=== PATIENT | female | born 1945 | race Caucasian/White ===

== ENCOUNTER 2018-04-08 12:20 | Inpatient (IN) ==
[2018-04-08] MEDS ORDERED: Diphtheria/Tetanus/Pertussis Vaccine Inj 0.5 ML Syringe IM ONE (12:30)
[2018-04-08] MEDS ORDERED: fentaNYL Citrate Inj 100 MCG/2 ML Ampul ONE (12:34)
[2018-04-08 12:42] LABS: Baso # (Auto) 0.1 th/mm3 (0.0-0.2); Baso % (Auto) 0.4 % (0.0-2.0); Eos # (Auto) 0.1 th/mm3 (0.0-0.4); Eos % (Auto) 0.9 % (0.0-4.0); Hematocrit 39.4 % (35.0-46.0); Hemoglobin 13.2 gm/dL (11.6-15.3); Lymph # (Auto) 5.5 th/mm3 (1.0-4.8); Lymph % (Auto) 36.7 % (9.0-44.0); Mean Corpuscular HGB Conc 33.6 % (32.0-36.0); Mean Corpuscular Hemoglobin 31.5 pg (27.0-34.0); Mean Corpuscular Volume 93.9 fL (80.0-100.0); Mean Platelet Volume 8.6 fL (7.0-11.0); Mono # (Auto) 0.9 th/mm3 (0.0-0.9); Mono % (Auto) 6.1 % (0.0-8.0); Neut # (Auto) 8.3 th/mm3 (1.8-7.7); Neut % (Auto) 55.9 % (16.0-70.0); Platelet Count 344 th/mm3 (150-450); Red Cell Distribution Width 13.7 % (11.6-17.2); White Blood Count 14.9 th/mm3 (4.0-11.0)
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
[2018-04-08 12:51] LABS: Activated Partial Thrombo Time 22.6 sec (24.3-30.1)
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
[2018-04-08 13:15] LABS: Eosinophils 1 % (0-4); Monocytes 3 % (0-8)
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
[2018-04-08 13:16] LABS: Lymphocytes 28 % (9-44); Platelet Estimate Normal (Normal); Platelet Morphology Normal (Normal); RBC Morphology Normal (Normal)
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
[2018-04-08] MEDS ORDERED: Lidocaine PF 1% Inj 30 ML Vial INFILTRATN ONE (13:39)
[2018-04-08] MEDS ORDERED: Naloxone Inj 0.4 MG/ML Vial IV.PUSH PRN (13:52)
[2018-04-08] MEDS ORDERED: Bisacodyl 10 MG Supp RECTAL PRN (13:52)
[2018-04-08] MEDS ORDERED: Post-op Orders (for Pharmacy) OTHER ONE (13:52)
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
[2018-04-08] MEDS ORDERED: levETIRAcetam 500mg/100mL Inj 100 ML IV.SIG SCH (14:00)
[2018-04-08] MEDS: ceFAZolin Inj 1,000 MG in Sodium Chlor 0.9% Inj 100 ML IV.SIG SCH ×2 (15:18→21:35)
[2018-04-08] MEDS: Morphine Inj 4 MG/ML Vial IV.PUSH PRN ×2 (15:41→21:30)
[2018-04-08] MEDS: Sod Chloride 0.9% Inj 1,000 ML IV.CONT SCH (15:42)
[2018-04-08] MEDS: Pantoprazole Inj 40 MG Vial IV.PUSH SCH (15:43)
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
[2018-04-08] MEDS ORDERED: Acetaminophen 325 MG Tablet PO PRN (17:22)
[2018-04-08] MEDS: Senna/Docusate Sodium 8.6/50 MG Tablet PO SCH (21:29)
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
[2018-04-09] MEDS: Sod Chloride 0.9% Inj 1,000 ML IV.CONT SCH ×3 (01:36→21:50)
[2018-04-09 05:28] LABS: Baso % (Auto) 0.1 % (0.0-2.0); Hemoglobin 8.9 gm/dL (11.6-15.3); Lymph # (Auto) 1.7 th/mm3 (1.0-4.8); Lymph % (Auto) 8.3 % (9.0-44.0); Mean Corpuscular HGB Conc 32.8 % (32.0-36.0); Mean Corpuscular Hemoglobin 31.4 pg (27.0-34.0); Mean Corpuscular Volume 95.7 fL (80.0-100.0); Mean Platelet Volume 9.2 fL (7.0-11.0); Mono # (Auto) 1.4 th/mm3 (0.0-0.9); Mono % (Auto) 6.9 % (0.0-8.0); Neut # (Auto) 17.2 th/mm3 (1.8-7.7); Neut % (Auto) 84.7 % (16.0-70.0); Platelet Count 282 th/mm3 (150-450); Red Blood Count 2.83 mil/mm3 (4.00-5.30); Red Cell Distribution Width 13.7 % (11.6-17.2); White Blood Count 20.3 th/mm3 (4.0-11.0)
[2018-04-09 05:41] LABS: Calcium 7.6 mg/dL (8.5-10.1); Carbon Dioxide 21.4 meq/L (21.0-32.0); Potassium 3.8 meq/L (3.5-5.1)
[2018-04-09] MEDS: ceFAZolin Inj 1,000 MG in Sodium Chlor 0.9% Inj 100 ML IV.SIG SCH (05:51)
[2018-04-09] MEDS: Senna/Docusate Sodium 8.6/50 MG Tablet PO SCH ×3 (10:25→22:16)
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
[2018-04-09 15:47] LABS: Baso % (Auto) 0.1 % (0.0-2.0); Hematocrit 23.8 % (35.0-46.0); Hemoglobin 7.7 gm/dL (11.6-15.3); Lymph # (Auto) 2.1 th/mm3 (1.0-4.8); Lymph % (Auto) 10.7 % (9.0-44.0); Mean Corpuscular HGB Conc 32.3 % (32.0-36.0); Mean Platelet Volume 9.7 fL (7.0-11.0); Mono # (Auto) 2.2 th/mm3 (0.0-0.9); Mono % (Auto) 11.2 % (0.0-8.0); Neut # (Auto) 15.5 th/mm3 (1.8-7.7); Platelet Count 255 th/mm3 (150-450); Red Blood Count 2.48 mil/mm3 (4.00-5.30); Red Cell Distribution Width 14.1 % (11.6-17.2); White Blood Count 19.9 th/mm3 (4.0-11.0)
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
[2018-04-09 16:40] LABS: Platelet Estimate Normal (Normal); Platelet Morphology Normal (Normal); RBC Morphology Normal (Normal)
[2018-04-09] MEDS: Pantoprazole Inj 40 MG Vial IV.PUSH SCH (17:49)
[2018-04-09] MEDS: levETIRAcetam 500 MG Tablet PO SCH ×2 (19:44→22:17)
[2018-04-09 21:58] LABS: Baso % (Auto) 0.2 % (0.0-2.0); Lymph # (Auto) 3.4 th/mm3 (1.0-4.8); Mean Corpuscular HGB Conc 32.5 % (32.0-36.0); Mean Corpuscular Hemoglobin 31.5 pg (27.0-34.0); Mean Corpuscular Volume 96.9 fL (80.0-100.0); Mean Platelet Volume 8.7 fL (7.0-11.0); Mono # (Auto) 2.3 th/mm3 (0.0-0.9); Mono % (Auto) 12.5 % (0.0-8.0); Neut % (Auto) 69.3 % (16.0-70.0); Platelet Count 219 th/mm3 (150-450); Red Blood Count 1.93 mil/mm3 (4.00-5.30); Red Cell Distribution Width 14.1 % (11.6-17.2); White Blood Count 18.7 th/mm3 (4.0-11.0)
--- NOTE | 2018-04-09 22:02 | CT ---
EXAM DATE: 04/09/2018 9:10 PM EDT AGE/SEX: 89 years / Female INDICATIONS: Follow up bilateral subarachnoid hemorrhage. CLINICAL DATA: This is the patient's subsequent encounter. Patient reports that signs and symptoms h ave been present for 1 day and indicates a pain score of Nonresponsive. MEDICAL/SURGICAL HISTORY: Non-responsive. Non-responsive. RADIATION DOSE: 56.35 CTDI (mGy) COMPARISON: [facility] – [place], CT HEAD W/O CONTRAST, 04/08/2018. . TECHNIQUE: CT of the head without contrast. Using automated exposure control and adjustment of the mA and/or kV according to patient size, radiation dose was kept as low as reasonably achievable to ob tain optimal diagnostic quality images. DICOM format image data is available electronically for revi ew and comparison. FINDINGS: Cerebrum: Interval increase in the size of the left frontal hematoma, now measuring 3.6 x 1.9 cm (pr eviously measured 1.5 x 0.7 cm). There is no effacement of the left frontal horn. Interval interval i ncrease in the size of the right inferior parietal hematoma, now measuring 3.7 x 2.1 cm (previously w as ill-defined and measured up to 9 mm in size). Stable size to the mid convexity right peripheral pa rietal hematoma measuring 6 mm. The ventricles are normal in size. There is preserved mcqueen-white alex er differentiation. Posterior Fossa: The cerebellum and brainstem are intact. The 4th ventricle is midline. The cerebe llopontine angle is unremarkable. Extracranial: Stable left exophthalmus. Skull: Stable left supraorbital fracture and right sphenoid fracture. Persistent opacification of th e ethmoid and sphenoid sinuses. CONCLUSION: 1. Significant change in the appearance of the brain with increasing size left frontal and right pos terior parietal hematomas, each now measuring up to 3.7 cm in size. No effacement of the ventricles o r loss of mcqueen-white matter differentiation. . Electronically signed by: Alex Epps MD 04/09/2018 10:01 PM EDT
[2018-04-09 22:08] LABS: Hematocrit 18.7 % (35.0-46.0); Hemoglobin 6.1 gm/dL (11.6-15.3)
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
[2018-04-09 23:32] LABS: Lymphocytes 15 % (9-44); Metamyelocytes 5 % (0-1); Monocytes 4 % (0-8); Myelocytes 1 % (0-0)
[2018-04-09 23:33] LABS: Platelet Estimate Normal (Normal); Platelet Morphology Normal (Normal); Toxic Granulation 3+
[2018-04-10] MEDS: Senna/Docusate Sodium 8.6/50 MG Tablet PO SCH ×2 (10:06→20:12)
[2018-04-10] MEDS: levETIRAcetam 500 MG Tablet PO SCH ×2 (10:06→20:09)
[2018-04-10 10:17] LABS: Baso % (Auto) 0.1 % (0.0-2.0); Eos % (Auto) 0.1 % (0.0-4.0); Hematocrit 26.6 % (35.0-46.0); Hemoglobin 9.1 gm/dL (11.6-15.3); Lymph # (Auto) 2.3 th/mm3 (1.0-4.8); Lymph % (Auto) 16.1 % (9.0-44.0); Mean Corpuscular HGB Conc 34.3 % (32.0-36.0); Mean Corpuscular Hemoglobin 32.3 pg (27.0-34.0); Mean Corpuscular Volume 94.3 fL (80.0-100.0); Mean Platelet Volume 9.1 fL (7.0-11.0); Mono # (Auto) 1.2 th/mm3 (0.0-0.9); Mono % (Auto) 8.5 % (0.0-8.0); Neut # (Auto) 10.6 th/mm3 (1.8-7.7); Neut % (Auto) 75.2 % (16.0-70.0); Platelet Count 172 th/mm3 (150-450); Red Blood Count 2.82 mil/mm3 (4.00-5.30); Red Cell Distribution Width 14.6 % (11.6-17.2); White Blood Count 14.1 th/mm3 (4.0-11.0)
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
[2018-04-10 10:50] LABS: Calcium 7.1 mg/dL (8.5-10.1); Carbon Dioxide 26.6 meq/L (21.0-32.0); Potassium 3.2 meq/L (3.5-5.1)
[2018-04-10 11:02] LABS: Total Protein 5.2 g/dL (6.4-8.2)
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
[2018-04-10] MEDS: Pantoprazole Inj 40 MG Vial IV.PUSH SCH (13:00)
[2018-04-10 14:02] LABS: Hematocrit 24.5 % (35.0-46.0); Hemoglobin 8.5 gm/dL (11.6-15.3)
[2018-04-10] MEDS: Sod Chloride 0.9% Inj 1,000 ML IV.CONT SCH ×2 (17:18)
[2018-04-11 04:40] LABS: Baso % (Auto) 0.2 % (0.0-2.0); Eos % (Auto) 0.4 % (0.0-4.0); Hematocrit 25.3 % (35.0-46.0); Hemoglobin 8.7 gm/dL (11.6-15.3); Lymph # (Auto) 2.4 th/mm3 (1.0-4.8); Lymph % (Auto) 18.8 % (9.0-44.0); Mean Corpuscular HGB Conc 34.3 % (32.0-36.0); Mean Corpuscular Volume 93.4 fL (80.0-100.0); Mean Platelet Volume 8.6 fL (7.0-11.0); Mono # (Auto) 0.9 th/mm3 (0.0-0.9); Mono % (Auto) 7.2 % (0.0-8.0); Neut # (Auto) 9.3 th/mm3 (1.8-7.7); Neut % (Auto) 73.4 % (16.0-70.0); Platelet Count 165 th/mm3 (150-450); Red Blood Count 2.71 mil/mm3 (4.00-5.30); Red Cell Distribution Width 14.6 % (11.6-17.2); White Blood Count 12.6 th/mm3 (4.0-11.0)
[2018-04-11 05:01] LABS: Calcium 7.2 mg/dL (8.5-10.1); Carbon Dioxide 24.6 meq/L (21.0-32.0)
[2018-04-11 05:21] LABS: Total Protein 5.3 g/dL (6.4-8.2)
[2018-04-11 05:51] LABS: Platelet Morphology Normal (Normal)
[2018-04-11] MEDS: Sod Chloride 0.9% Inj 1,000 ML IV.CONT SCH ×2 (05:53→18:04)
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
[2018-04-11] MEDS: levETIRAcetam 500 MG Tablet PO SCH ×2 (08:25→21:12)
[2018-04-11] MEDS: Senna/Docusate Sodium 8.6/50 MG Tablet PO SCH ×2 (08:25→21:12)
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
[2018-04-11] MEDS: Pantoprazole Inj 40 MG Vial IV.PUSH SCH (13:38)
[2018-04-11] MEDS: Brimonidine 0.2% Opth Drops 5 ML Bottle LEFT EYE SCH (18:05)
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
[2018-04-11] MEDS: Latanoprost 0.005% Opth Drops 2.5 ML Bottle LEFT EYE SCH (21:12)
[2018-04-11] MEDS: Dorzolamide-Timolol 2/0.5% Opth Drops 10 ML Bottle LEFT EYE SCH (21:12)
[2018-04-12 04:44] LABS: Baso % (Auto) 0.3 % (0.0-2.0); Eos # (Auto) 0.1 th/mm3 (0.0-0.4); Eos % (Auto) 0.8 % (0.0-4.0); Hematocrit 25.9 % (35.0-46.0); Hemoglobin 8.8 gm/dL (11.6-15.3); Lymph # (Auto) 2.2 th/mm3 (1.0-4.8); Lymph % (Auto) 17.7 % (9.0-44.0); Mean Corpuscular Hemoglobin 32.5 pg (27.0-34.0); Mean Corpuscular Volume 95.5 fL (80.0-100.0); Mean Platelet Volume 8.3 fL (7.0-11.0); Mono # (Auto) 0.9 th/mm3 (0.0-0.9); Neut # (Auto) 9.2 th/mm3 (1.8-7.7); Neut % (Auto) 74.2 % (16.0-70.0); Platelet Count 186 th/mm3 (150-450); Red Blood Count 2.71 mil/mm3 (4.00-5.30); Red Cell Distribution Width 14.6 % (11.6-17.2); White Blood Count 12.4 th/mm3 (4.0-11.0)
[2018-04-12 06:57] LABS: Tallied Nucleated RBC 2 (0-0)
[2018-04-12 06:58] LABS: Blast Cells 1 % (0-0); Lymphocytes 12 % (9-44); Metamyelocytes 1 % (0-1); Monocytes 1 % (0-8)
[2018-04-12 06:59] LABS: Myelocytes 1 % (0-0)
[2018-04-12 07:01] LABS: Platelet Estimate Normal (Normal); Platelet Morphology Normal (Normal)
[2018-04-12] MEDS: Sod Chloride 0.9% Inj 1,000 ML IV.CONT SCH ×2 (07:46→22:12)
[2018-04-12] MEDS: Senna/Docusate Sodium 8.6/50 MG Tablet PO SCH ×3 (08:54→22:09)
[2018-04-12] MEDS: levETIRAcetam 500 MG Tablet PO SCH ×2 (08:54→22:09)
[2018-04-12] MEDS: Dorzolamide-Timolol 2/0.5% Opth Drops 10 ML Bottle LEFT EYE SCH ×2 (09:01→22:11)
[2018-04-12] MEDS: Brimonidine 0.2% Opth Drops 5 ML Bottle LEFT EYE SCH ×3 (10:18→18:26)
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
[2018-04-12] MEDS: Pantoprazole Inj 40 MG Vial IV.PUSH SCH (13:32)
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
[2018-04-12] MEDS: Acetaminophen 325 MG Tablet PO PRN (22:08)
[2018-04-12] MEDS: Latanoprost 0.005% Opth Drops 2.5 ML Bottle LEFT EYE SCH (22:12)
[2018-04-13 04:55] LABS: Baso % (Auto) 0.4 % (0.0-2.0); Eos # (Auto) 0.2 th/mm3 (0.0-0.4); Eos % (Auto) 1.7 % (0.0-4.0); Hematocrit 27.5 % (35.0-46.0); Hemoglobin 9.5 gm/dL (11.6-15.3); Lymph # (Auto) 2.2 th/mm3 (1.0-4.8); Lymph % (Auto) 19.1 % (9.0-44.0); Mean Corpuscular HGB Conc 34.5 % (32.0-36.0); Mean Corpuscular Hemoglobin 32.6 pg (27.0-34.0); Mean Corpuscular Volume 94.5 fL (80.0-100.0); Mean Platelet Volume 8.1 fL (7.0-11.0); Mono # (Auto) 0.9 th/mm3 (0.0-0.9); Mono % (Auto) 7.5 % (0.0-8.0); Neut # (Auto) 8.4 th/mm3 (1.8-7.7); Neut % (Auto) 71.3 % (16.0-70.0); Platelet Count 271 th/mm3 (150-450); Red Blood Count 2.91 mil/mm3 (4.00-5.30); Red Cell Distribution Width 14.5 % (11.6-17.2); White Blood Count 11.7 th/mm3 (4.0-11.0)
[2018-04-13 05:20] LABS: Anion Gap 11 meq/L (5-15); Blood Urea Nitrogen 10 mg/dL (7-18); Calcium 7.4 mg/dL (8.5-10.1); Carbon Dioxide 23.3 meq/L (21.0-32.0); Chloride 110 meq/L (98-107); Glomerular Filtration Rate Greater Than 89 mL/min (>89); Glucose,Random 84 mg/dL (74-106); Potassium 3.4 meq/L (3.5-5.1); Sodium 144 meq/L (136-145)
[2018-04-13 05:34] LABS: Total Protein 5.6 g/dL (6.4-8.2)
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
[2018-04-13] MEDS: Senna/Docusate Sodium 8.6/50 MG Tablet PO SCH ×2 (09:48→21:49)
[2018-04-13] MEDS: levETIRAcetam 500 MG Tablet PO SCH ×2 (09:48→21:49)
[2018-04-13] MEDS: Pantoprazole Inj 40 MG Vial IV.PUSH SCH (14:35)
[2018-04-13] MEDS: Brimonidine 0.2% Opth Drops 5 ML Bottle LEFT EYE SCH ×3 (14:36→18:00)
[2018-04-13] MEDS: Dorzolamide-Timolol 2/0.5% Opth Drops 10 ML Bottle LEFT EYE SCH ×2 (14:36→21:49)
--- NOTE | 2018-04-13 15:50 | P.PN ---
Subjective Interval history: CT head showed no new findings - still with persistent orbital hematoma on the left measuring up to 1.3 cm in thickness and resulting in left-sided proptosis and inferior displacement of the left optic globe. Pt still cannot open left eye and states it is very tender to touch. Physical Exam Vital signs: Vital Signs 04/12/18 16:00 04/12/18 20:55 04/12/18 22:05 Temperature 99.0 F Pulse Rate 83 86 Respiratory Rate 21 17 18 Blood Pressure 144/65 H Pulse Oximetry 96 92 L 04/12/18 22:30 04/12/18 23:54 04/13/18 00:00 Temperature 97.7 F Pulse Rate 83 81 Respiratory Rate 20 16 18 Blood Pressure 147/66 H Pulse Oximetry 96 96 04/13/18 00:44 04/13/18 04:00 04/13/18 05:15 Temperature 98 F Pulse Rate 77 Respiratory Rate 18 18 19 Blood Pressure 135/62 Pulse Oximetry 94 L 04/13/18 08:00 04/13/18 08:50 04/13/18 12:12 Temperature 98.7 F Pulse Rate 78 72 70 Respiratory Rate 20 18 16 Blood Pressure 143/67 H Pulse Oximetry 93 L 95 Intake & Output 04/12/18 04/13/18 04/13/18 18:59 06:59 18:59 Intake Total 100 / 100 1804 / 1804 Output Total 700 / 700 Balance -600 / -600 1804 / 1804 Weight 60 kg Intake: IV 100 / 100 683 / 683 NS Inj 1,000 ML @ 75 mls/hr IV. 683 / 683 CONT .[id number] [facility] Rx#:[id number] Ofirmev Inj 1,000 mg In 100 ml 100 / 100 @ 400 mls/hr IV.SIG Q6H PRN Rx# :[id number] Oral 221 / 221 Other 900 / 900 Output: Urine Amount (Catheter) 700 / 700 Indwelling Urethral Catheter 700 / 700 Other: Other Intake Source Saline Solution # Voids 2 Date of Last Bowel Movement 04/11/18 # Bowel Movements 1 - Detailed Eye Exam Comments: Va sc at near OD 20/200, OS 20/200 EOM full OD, almost complete ophthalmoplegia OS CVF unable Pupils 2-1, +APD OS IOP 15, 24 Anterior exam OD - eyelid ecchymoses, C/S W&Q, K clear, AC deep, pupil round, PCIOL OS - eyelid ecchymoses, proptosis, complete ptosis, chemosis, K clear, AC deep, pupil round, PCIOL - Urinary Catheter Management Indwelling Urethral Catheter Cath placed during this visit: yes, but has since been removed by the nurse Reason for continuing: Acute urinary retention Insertion date: 04/08/18 Insertion time: 17:00 Removal date: 04/12/18 Results - Labs CBC & Chem 7: 04/13/18 04:03 04/13/18 04:03 Laboratory Results - last 24 hr 04/13/18 04/13/18 04:03 04:03 WBC 11.7 H RBC 2.91 L Hgb 9.5 L Hct 27.5 L MCV 94.5 MCH 32.6 MCHC 34.5 RDW 14.5 Plt Count 271 D MPV 8.1 Prelim Diff (Auto) Slide review pending Neut % (Auto) 71.3 H Lymph % (Auto) 19.1 [place] % (Auto) 7.5 Eos % (Auto) 1.7 Baso % (Auto) 0.4 Neut # (Auto) 8.4 H Lymph # (Auto) 2.2 [place] # (Auto) 0.9 Eos # (Auto) 0.2 Baso # (Auto) 0.0 WBC Differential . Diff Scan Auto diff confirmed Differential Comment . Sodium 144 Potassium 3.4 L Chloride 110 H Carbon Dioxide 23.3 Anion Gap 11 BUN 10 Creatinine 0.48 L Estimated GFR Greater than 89 Random Glucose 84 Calcium 7.4 L* Prot Corrected Calcium 8.2 L Total Protein 5.6 L - Imaging Impressions Head CTA 04/12/18 11:20 CONCLUSION: 1. Unremarkable study except for findings on the CT portion of the examination discussed on prior CT head. Assessment and Plan - Assessment (1) Exophthalmos of left eye Code(s): H05.20 - Unspecified exophthalmos Status: Acute Plan: Persistent left retrobulbar hematoma on CT causing proptosis, inferior displacement of globe, afferent pupillary defect and increased intraocular pressure. Advised pt she needs to have surgery to drain the hematoma since it can cause permanent vision loss if left untreated. Was scheduled today, but pt would like to wait 2 more days to see if it improves on its own. Rescheduled drainage of retrobulbar hematoma for Wednesday at 11:30am (NPO after midnight). Continue brimonidine TID OS, dorzolamide-timolol BID OS, latanoprost qhs OS for increased intraocular pressure.
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
[2018-04-13] MEDS: Latanoprost 0.005% Opth Drops 2.5 ML Bottle LEFT EYE SCH (21:49)
[2018-04-13] MEDS: Acetaminophen 325 MG Tablet PO PRN (21:50)
[2018-04-14] MEDS: Acetaminophen 325 MG Tablet PO PRN ×3 (05:34→22:14)
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
[2018-04-14] MEDS: Senna/Docusate Sodium 8.6/50 MG Tablet PO SCH ×2 (10:09→22:15)
[2018-04-14] MEDS: levETIRAcetam 500 MG Tablet PO SCH ×2 (10:09→22:14)
[2018-04-14] MEDS: Brimonidine 0.2% Opth Drops 5 ML Bottle LEFT EYE SCH ×3 (10:14→18:05)
[2018-04-14] MEDS: Dorzolamide-Timolol 2/0.5% Opth Drops 10 ML Bottle LEFT EYE SCH ×2 (10:15→22:16)
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
[2018-04-14] MEDS: Pantoprazole Inj 40 MG Vial IV.PUSH SCH (13:10)
--- NOTE | 2018-04-14 17:14 | P.PN ---
Subjective Interval history: No change - still complaining of pain around OS. Still cannot open left eyelid. Physical Exam Vital signs: Vital Signs 04/13/18 20:10 04/13/18 20:13 04/13/18 22:01 Temperature 99.2 F Pulse Rate 89 85 Respiratory Rate 18 20 Blood Pressure 152/70 H Pulse Oximetry 96 96 04/13/18 23:15 04/14/18 00:00 04/14/18 03:52 Temperature 98.5 F Pulse Rate 87 Respiratory Rate 18 19 18 Blood Pressure 127/59 L Pulse Oximetry 96 04/14/18 04:00 04/14/18 07:31 04/14/18 08:00 Temperature 98.2 F 97.8 F Pulse Rate 72 77 Respiratory Rate 18 18 20 Blood Pressure 136/65 154/67 H Pulse Oximetry 97 90 L 04/14/18 12:00 04/14/18 14:54 04/14/18 16:00 Temperature 98.3 F 98.2 F Pulse Rate 68 68 Respiratory Rate 20 18 16 Blood Pressure 150/67 H 146/72 H Pulse Oximetry 98 95 Intake & Output 04/13/18 04/14/18 04/14/18 18:59 06:59 18:59 Intake Total 360 / 360 340 / 340 Balance 360 / 360 340 / 340 Intake: Oral 360 / 360 340 / 340 Other: # Voids 4 3 Date of Last Bowel Movement 04/13/18 # Bowel Movements 1 - Detailed Eye Exam Comments: Va sc at near OD 20/200, OS 20/200 EOM full OD, almost complete ophthalmoplegia OS CVF unable Pupils 2-1, +APD OS IOP 15, 23 Anterior exam OD - eyelid ecchymoses, C/S W&Q, K clear, AC deep, pupil round, PCIOL OS - eyelid ecchymoses, proptosis, hypoglobus, complete ptosis, chemosis, K clear, AC deep, pupil round, PCIOL - Urinary Catheter Management Indwelling Urethral Catheter Cath placed during this visit: yes, but has since been removed by the nurse Reason for continuing: Acute urinary retention Insertion date: 04/08/18 Insertion time: 17:00 Removal date: 04/12/18 Results - Labs CBC & Chem 7: 04/13/18 04:03 04/13/18 04:03 Assessment and Plan - Assessment (1) Exophthalmos of left eye Code(s): H05.20 - Unspecified exophthalmos Status: Acute Plan: Persistent left retrobulbar hematoma on CT causing proptosis, inferior displacement of globe, afferent pupillary defect and increased intraocular pressure. Advised pt she needs to have surgery to drain the hematoma since it can cause permanent vision loss if left untreated. Drainage of retrobulbar hematoma for Wednesday at 7:00am (NPO after midnight). Continue brimonidine TID OS, dorzolamide-timolol BID OS, latanoprost qhs OS for increased intraocular pressure.
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
[2018-04-14] MEDS: Latanoprost 0.005% Opth Drops 2.5 ML Bottle LEFT EYE SCH (22:16)
[2018-04-15] MEDS ORDERED: Chlorhexidine Gluconate 2% 1 Pack (2 Cloths) TOPICAL SCH (02:30)
[2018-04-15] MEDS ORDERED: Sodium Chlor 0.9% Inj 500 ML IV.SIG SCH (03:00)
[2018-04-15] MEDS ORDERED: Labetalol HCl Inj 100 MG/20 ML Vial IV.CONT ONE (07:24)
--- NOTE | 2018-04-15 08:36 | P.OP ---
- Preoperative Diagnosis (1) Traumatic orbital hematoma - Postoperative Diagnosis (1) Traumatic orbital hematoma Date of procedure: 04/15/18 Procedure: superior orbitotomy and drainage of retrobulbar hematoma left eye Anesthesia: JANN Surgeon: Denise Donahue MD Operation and Findings: The patient was consented for surgery and taken back to the operating room. She was put under general anesthesia and prepped and draped in the usual sterile fashion for ophthalmic surgery. Tonopen was used to check intraocular pressure before the case started - 29mm Hg left eye. A 15 blade was used on the superior crease of the left eyelid to cut through the orbicularis and septum. Q-tips were used to bluntly dissect through the orbital fat. A large amount of superior /posterior hematoma was drained. Q-tips soaked with 1% epinephrine were used for hemostasis. Intraocular pressure after was measured at 13mm Hg. The orbicularis was closed with 6-0 gut suture. The skin was closed with 6-0 Prolene. TobraDex ointment and Steri-strips were placed at the end of the case.
[2018-04-15] MEDS ORDERED: *morphine SULFATE 4 MG/ML PERIprocedure ONLY ONE (08:39)
--- NOTE | 2018-04-15 08:45 | P.PN ---
Subjective Interval history: Pt in PACU - s/p drainage of retrobulbar hematoma. Physical Exam Vital signs: Vital Signs 04/14/18 12:00 04/14/18 14:54 04/14/18 16:00 Temperature 98.3 F 98.2 F Pulse Rate 68 68 Respiratory Rate 20 18 16 Blood Pressure 150/67 H 146/72 H Pulse Oximetry 98 95 04/14/18 19:45 04/14/18 20:00 04/14/18 20:32 Temperature 98.1 F Pulse Rate 83 Respiratory Rate 19 18 Blood Pressure 147/65 H Pulse Oximetry 98 99 04/15/18 00:00 04/15/18 04:00 Temperature 98.4 F 98.2 F Pulse Rate 78 67 Respiratory Rate 18 18 Blood Pressure 128/58 L 139/65 Pulse Oximetry 97 98 Intake & Output 04/14/18 04/15/18 04/15/18 18:59 06:59 18:59 Other: # Voids 2 1 Date of Last Bowel Movement 04/14/18 - Detailed Eye Exam Comments: Va unable EOM unable CVF unable Pupils 2-1 IOP 14, 13 Anterior exam OD - eyelid ecchymoses, C/S W&Q, K clear, AC deep, pupil round, PCIOL OS - eyelid ecchymoses, mild chemosis, K clear, AC deep, pupil round, PCIOL - Urinary Catheter Management Indwelling Urethral Catheter Cath placed during this visit: yes, but has since been removed by the nurse Reason for continuing: Acute urinary retention Insertion date: 04/08/18 Insertion time: 17:00 Removal date: 04/12/18 Results - Labs CBC & Chem 7: 04/13/18 04:03 04/13/18 04:03 Assessment and Plan - Assessment (1) Hemorrhage of left orbit Code(s): H05.232 - Hemorrhage of left orbit Status: Acute Plan: s/p superior orbitotomy and drainage of retrobulbar hematoma OS. Can stop all eye drops. Intraocular pressure and pupils have normalized. Will need suture removal in 1 week.
[2018-04-15 08:49] LABS: Baso # (Auto) 0.1 th/mm3 (0.0-0.2); Baso % (Auto) 0.4 % (0.0-2.0); Eos # (Auto) 0.3 th/mm3 (0.0-0.4); Eos % (Auto) 2.4 % (0.0-4.0); Hemoglobin 9.5 gm/dL (11.6-15.3); Lymph # (Auto) 1.9 th/mm3 (1.0-4.8); Lymph % (Auto) 14.5 % (9.0-44.0); Mean Corpuscular Hemoglobin 33.3 pg (27.0-34.0); Mean Corpuscular Volume 95.2 fL (80.0-100.0); Mono # (Auto) 1.1 th/mm3 (0.0-0.9); Mono % (Auto) 8.3 % (0.0-8.0); Neut # (Auto) 9.8 th/mm3 (1.8-7.7); Neut % (Auto) 74.4 % (16.0-70.0); Platelet Count 333 th/mm3 (150-450); Red Blood Count 2.84 mil/mm3 (4.00-5.30); Red Cell Distribution Width 14.2 % (11.6-17.2); White Blood Count 13.2 th/mm3 (4.0-11.0)
[2018-04-15] MEDS: *Meperidine Inj 25 MG/ML Vial PERIprocedural Use ONLY ONE ×2 (08:52→08:56)
[2018-04-15 09:07] LABS: Anion Gap 12 meq/L (5-15); Blood Urea Nitrogen 9 mg/dL (7-18); Calcium 7.5 mg/dL (8.5-10.1); Carbon Dioxide 25.2 meq/L (21.0-32.0); Chloride 105 meq/L (98-107); Glomerular Filtration Rate Greater Than 89 mL/min (>89); Glucose,Random 69 mg/dL (74-106); Sodium 142 meq/L (136-145)
[2018-04-15 09:48] LABS: Potassium 2.8 meq/L (3.5-5.1)
[2018-04-15 10:14] LABS: Eosinophils 1 % (0-4); Lymphocytes 14 % (9-44); Metamyelocytes 5 % (0-1); Monocytes 7 % (0-8); Myelocytes 3 % (0-0); Promyelocyte 5 % (0-0); Tallied Nucleated RBC 2 (0-0)
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
[2018-04-15 10:15] LABS: Platelet Estimate Normal (Normal); Platelet Morphology Normal (Normal)
[2018-04-15] MEDS: levETIRAcetam 500 MG Tablet PO SCH (11:20)
[2018-04-15] MEDS: Senna/Docusate Sodium 8.6/50 MG Tablet PO SCH ×2 (11:21→20:44)
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
[2018-04-15] MEDS: Pantoprazole Inj 40 MG Vial IV.PUSH SCH (14:44)
[2018-04-16 04:40] LABS: Baso # (Auto) 0.1 th/mm3 (0.0-0.2); Baso % (Auto) 0.5 % (0.0-2.0); Eos # (Auto) 0.2 th/mm3 (0.0-0.4); Eos % (Auto) 1.2 % (0.0-4.0); Hematocrit 27.7 % (35.0-46.0); Hemoglobin 9.4 gm/dL (11.6-15.3); Lymph # (Auto) 2.6 th/mm3 (1.0-4.8); Lymph % (Auto) 18.7 % (9.0-44.0); Mean Corpuscular Hemoglobin 32.8 pg (27.0-34.0); Mean Corpuscular Volume 96.3 fL (80.0-100.0); Mean Platelet Volume 7.2 fL (7.0-11.0); Mono # (Auto) 1.3 th/mm3 (0.0-0.9); Mono % (Auto) 8.9 % (0.0-8.0); Neut # (Auto) 9.9 th/mm3 (1.8-7.7); Neut % (Auto) 70.7 % (16.0-70.0); Platelet Count 382 th/mm3 (150-450); Red Blood Count 2.88 mil/mm3 (4.00-5.30); Red Cell Distribution Width 14.4 % (11.6-17.2); White Blood Count 14.1 th/mm3 (4.0-11.0)
[2018-04-16 05:06] LABS: Anion Gap 9 meq/L (5-15); Blood Urea Nitrogen 14 mg/dL (7-18); Calcium 7.5 mg/dL (8.5-10.1); Carbon Dioxide 27.4 meq/L (21.0-32.0); Chloride 108 meq/L (98-107); Glomerular Filtration Rate Greater Than 89 mL/min (>89); Glucose,Random 83 mg/dL (74-106); Potassium 3.4 meq/L (3.5-5.1); Sodium 144 meq/L (136-145)
[2018-04-16 05:39] VITALS: O2SAT 97
[2018-04-16 06:31] LABS: Lymphocytes 9 % (9-44); Monocytes 9 % (0-8); Myelocytes 3 % (0-0)
[2018-04-16 06:32] LABS: Platelet Estimate Normal (Normal); Platelet Morphology Normal (Normal)
[2018-04-16] MEDS: Senna/Docusate Sodium 8.6/50 MG Tablet PO SCH (08:39)
[2018-04-16 09:44] VITALS: RESP 16
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
--- NOTE | 2018-04-16 10:13 | P.PN ---
Subjective Interval history: No eye pain. Still c/o general headache. Physical Exam Vital signs: Vital Signs 04/15/18 11:15 04/15/18 12:27 04/15/18 16:00 Temperature 97.3 F L 97.1 F L Pulse Rate 69 73 Respiratory Rate 18 18 Blood Pressure 133/65 127/63 Pulse Oximetry 96 95 92 L 04/15/18 18:29 04/15/18 19:45 04/15/18 20:00 Temperature 98.1 F Pulse Rate 87 Respiratory Rate 18 18 Blood Pressure 115/56 L Pulse Oximetry 95 96 04/16/18 00:00 04/16/18 04:00 04/16/18 08:00 Temperature 98.4 F 97.8 F 97.3 F L Pulse Rate 89 74 69 Respiratory Rate 18 18 16 Blood Pressure 122/57 L 125/60 136/60 Pulse Oximetry 93 L 97 97 Intake & Output 04/15/18 04/16/18 04/16/18 18:59 06:59 18:59 Intake Total 900 / 900 340 / 340 Output Total 2 / 2 Balance 898 / 898 340 / 340 Weight 60.2 kg Intake: Oral 340 / 340 Anesthesia Amount 900 / 900 Output: Estimated Blood Loss 2 / 2 Other: # Voids 2 2 Date of Last Bowel Movement 04/16/18 - Detailed Eye Exam Comments: Va sc at near OD 20/40, OS 20/60 EOM full OD, mild limitation in all directions OS CVF full OU Pupils 2-1 no APD OU IOP 16, 17 Anterior exam OD - mild proptosis, hypoglobus, ptosis, mild chemosis, K clear, AC deep, pupil round, lens clear OS - normal eyelid, C/S W&Q, K clear, AC deep, pupil round, lens clear - Urinary Catheter Management Indwelling Urethral Catheter Cath placed during this visit: yes, but has since been removed by the nurse Reason for continuing: Acute urinary retention Insertion date: 04/08/18 Insertion time: 17:00 Removal date: 04/12/18 Results - Labs CBC & Chem 7: 04/16/18 04:30 04/16/18 04:30 Laboratory Results - last 24 hr 04/15/18 04/16/18 04/16/18 06:01 04:30 04:30 WBC 14.1 H RBC 2.88 L Hgb 9.4 L Hct 27.7 L MCV 96.3 MCH 32.8 MCHC 34.0 RDW 14.4 Plt Count 382 MPV 7.2 Prelim Diff (Auto) Slide review pending Neut % (Auto) 70.7 H Lymph % (Auto) 18.7 [place] % (Auto) 8.9 H Eos % (Auto) 1.2 Baso % (Auto) 0.5 Neut # (Auto) 9.9 H Lymph # (Auto) 2.6 [place] # (Auto) 1.3 H Eos # (Auto) 0.2 Baso # (Auto) 0.1 WBC Differential Manual diff final Manual diff final Seg Neuts % (Manual) 63 76 H Band Neuts % (Manual) 2 3 Lymphocytes % (Manual) 14 9 Monocytes % (Manual) 7 9 H Eosinophils % (Manual) 1 Metamyelocytes % (Man) 5 H Myelocytes % (Man) 3 H 3 H Promyelocytes % (Man) 5 H Abs Neuts (Manual) 10.3 H 11.6 H Nucleated RBCs/100 WBC 2 H Differential Comment . Platelet Estimate Normal Normal Platelet Morphology Normal Normal Polychromasia 3.0 H Sodium 144 Potassium 3.4 L Chloride 108 H Carbon Dioxide 27.4 Anion Gap 9 BUN 14 Creatinine 0.52 Estimated GFR Greater than 89 Random Glucose 83 Calcium 7.5 L Assessment and Plan - Assessment (1) Hemorrhage of left orbit Code(s): H05.232 - Hemorrhage of left orbit Status: Acute Plan: 1 day s/p superior orbitotomy and drainage of retrobulbar hematoma OS. Visual acuity, intraocular pressure and pupils have improved. Will need suture removal in 1 week. [facility].
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
[2018-04-16] MEDS: Pantoprazole Inj 40 MG Vial IV.PUSH SCH (13:48)
[2018-04-16] MEDS: Acetaminophen 325 MG Tablet PO PRN (13:48)
[2018-04-16 14:09] VITALS: BP 129/60; PULSE 78; TEMP 97.9
--- NOTE | 2018-04-16 17:29 | ECG ---
Date Performed: 04/15/2018 Time Performed: 05:16:10 PTAGE: 72 years EKG: Sinus rhythm . Lateral ST-T changes are nonspecific Borderline ECG NO PREVIOUS TRACING DOCTOR: [place] Interpretating Date/Time 04/16/2018 17:26:53
== END 2018-04-16 15:20 ==
LOC: NEPI 12:20 → N03 14:40 → NEDA 14:48 → EDBD 14:48 → N03 14:54 → N05 04-12 20:22
PROVIDERS: ADMIT Surgery; ATTEND Surgery